=== PATIENT | female | born 1985 | race Caucasian/White ===

== ENCOUNTER 2023-05-15 09:16 | Emergency (ER) | payer MEDICARE, MEDICAID, SELFPAY ==
--- NOTE | ~2023-05-15 | XR_ITS ---
EXAMINATION: XR CHEST CLINICAL INFORMATION: Cough and chest pain COMPARISON: Chest radiograph from 07/30/2013 TECHNIQUE: 2 views of the chest were obtained. FINDINGS: No focal consolidation. No pneumothorax. Trachea is midline. Cardiac mediastinal silhouette is not enlarged. No large pleural effusion. Osseous structures are intact. Soft tissues are unremarkable. XR/XR chest 2V IMPRESSION: No acute cardiopulmonary process.
[2023-05-15 09:25] VITALS: BP 167/97; PULSE 85; RESP 17; TEMP 37.3; O2SAT 97; BMI 27.5
[2023-05-15 09:50] LABS: MANUAL DIFF FLAG NO
[2023-05-15 09:57] LABS: Basophils Percent Auto 0.7 % (0-2); Eosinophils Percent Auto 0.5 % (0-4); Hematocrit 34.7 % (37.0-47.0); Hemoglobin 10.4 g/dl (12.0-16.0); Imm Gran Abs Auto 0.01 X10*3/uL (0.00-0.03); Imm Gran Pct Auto 0.2 % (0.0-0.4); Lymphocytes Absolute Auto 1.3 X10*3/uL (1.2-4.9); Lymphocytes Percent Auto 30.7 % (20-40); Mean Corpuscular Hemoglobin 20.9 pg (27.0-33.0); Mean Corpuscular Volume 69.7 fL (80.0-98.0); Mean Platelet Volume 9.7 fL (9.4-12.3); Monocytes Absolute Auto 0.5 X10*3/uL (0.1-1.2); Monocytes Percent Auto 12.7 % (2-11); Neutrophils Absolute Auto 2.3 x10*3/uL (2.0-8.3); Neutrophils Percent Auto 55.2 % (45-73); Platelet Count 159 X10*3/uL (160-400); Red Blood Count 4.98 X10*6/uL (4.20-5.50); Red Cell Distribution Width 17.9 % (11.0-16.0); White Blood Count 4.2 X10*3/uL (4.8-10.8)
[2023-05-15 10:07] LABS: Anion Gap 12 (12-20); Blood Urea Nitrogen 7 mg/dL (9-16); Calcium 8.7 mg/dL (8.4-10.2); Carbon Dioxide 27 mmol/L (22-29); Chloride 102 mmol/L (96-108); Creatinine Clr Calc Pharmacy 99.2; Estimated Glomerular Filt Rate > 60; Glucose Random 80 mg/dL (60-115); Potassium 3.7 mmol/L (3.3-5.1); Sodium 137 mmol/L (135-145)
--- NOTE | 2023-05-15 10:08 | ED.URI ---
HPI - URI/Sore Throat General Chief Complaint: Upper Respiratory Symptoms Stated Complaint: Difficulty breathing Time Seen by Provider: 05/15/23 09:44 Source: patient Mode of arrival: ambulatory Limitations: no limitations History of Present Illness HPI Narrative: patient is a 38-year-old female who presents to the emergency department for evaluation of flu-like symptoms. She reports symptom onset 3 days ago with significant worsening last night. She has been experiencing an intermittent diffuse headache, dry nonproductive cough, body aches, nausea, vomiting, poor p.o. intolerance, nasal congestion. She denies fevers, chills, neck pain, neck stiffness, abdominal pain, constipation, diarrhea, genitourinary symptoms, possibility of (history of tubal ligation). She denies known recent sick contacts, Related Data Previous Rx's Medication Instructions Recorded albuterol sulfate 90 mcg/actuation 2 puff inhalation Q4-6H PRN 05/15/23 aerosol inhaler shortness of breath or wheezing #6.7 grams ondansetron 4 mg disintegrating 4 mg PO Q8H PRN nausea and 05/15/23 tablet vomiting #14 tabs Allergies Allergy/AdvReac Type Severity Reaction Status Date / Time No Known Allergies Allergy Unverified 03/20/20 15:58 Review of Systems Review of Systems: Yes all other systems are reviewed and are negative [facility] Past Medical History Attestation statement: The following information was validated with the patient. Source: old records reviewed Social History Social History Advance Directives: No Advance Directives Information Provided: No Physical Exam Vital Signs: Vital Signs: Last Vital Signs Temp 100.3 F 05/15/23 11:35 Pulse 82 05/15/23 11:35 Resp 16 05/15/23 11:35 BP 167/94 H 05/15/23 11:35 Pulse Ox 97 05/15/23 11:35 O2 Del Method Room Air 05/15/23 11:35 BMI result Body Mass Index 27.5 Appearance: Alert.?Oriented to person, place and time. No acute distress.?Normal affect. Eyes: Pupils equal, round and reactive to light.? EOMI. No nystagmus. ENT: Pharynx normal, no exudates or tonsillar hypertrophy..?? Right TM normal. Left TM erythematous and bulging with opacity. no mastoid tenderness Neck: Normal inspection.? Neck supple.?? no cervical lymphadenopathy CVS: Heart sounds normal. Normal heart rate and rhythm.? Pulses normal.?? Respiratory: No respiratory distress.? Lung sounds clear to auscultation bilaterally?? Abdomen: Soft and non-tender. Normoactive bowel sounds. ? no CVA tenderness Skin: Skin warm and dry.? Normal skin color.? Extremities: No lower extremity edema.? Neuro: Moves all extremities spontaneously. Sensation intact bilaterally. Ambulates with normal steady gait. Medications Administered Discontinued Medications Generic Name Dose Route Start Last Admin Trade Name Gray PRN Reason Stop Dose Admin Acetaminophen 975 mg 05/15/23 11:37 05/15/23 11:44 Acetaminophen 325 Mg Tablet PO 05/15/23 11:38 975 mg ONCE ONE Administration Guaifenesin/Codeine Phosphate 10 ml 05/15/23 10:19 05/15/23 10:49 Guaifen/Codeine Sf 200/20/10ml 10 Ml Liquid PO 05/15/23 10:20 10 ml ONCE ONE Administration Sodium Chloride 1,000 mls @ 999 mls/hr 05/15/23 10:30 05/15/23 11:45 Ns IV 05/15/23 11:30 Infused .Q1H1M GEORGE Infusion Ondansetron HCl 4 mg 05/15/23 10:19 05/15/23 10:49 Ondansetron Hcl 4 Mg/2 Ml Vial IVPUSH 05/15/23 10:20 4 mg ONCE ONE Administration Medical Decision Making Medical Decision Making MDM Narrative: Patient is a 38-year-old female with past medical history of rheumatoid arthritis on biologic Orencia, presenting for evaluation of Viral symptoms. at the time of my examination she she appears ill and fatigued, notable congestion and persistent nonproductive cough. no respiratory distress, no tachypnea or hypoxia, no increased work of breathing, lung sounds are diminished bilaterally, though she does have low inspiratory effort as deep inspirations results in coughing episodes. Experiencing nausea and vomiting with poor p.o. tolerance, however abdominal examination is benign, not consistent with acute abdomen. COVID-19 testing negative. Influenza testing negative. RSV testing positive. At this time history and physical exam not consistent with ACS/PE. Chest x-ray reveals no acute cardiopulmonary process, no evidence of pneumonia at this time.. provided with feeling L IV fluid, Zofran IV, guaifenesin with codeine with good relief At the time of discharge she is Speaking clear full sentences, ambulatory with steady gait. Discussed conservative treatment including rest, hydration, Tylenol/ibuprofen as needed for fever and body aches, saline nasal spray, humidifier, [id number] cold medication. Advised to follow-up with primary care provider as needed, discussed reasons to return back to the emergency department. All questions were answered. Patient discharged home in stable condition. Differential Diagnosis Differential Diagnoses: The differential diagnosis associated with the presentation includes ( as noted above) Lab Data MDM Lab Attestation statement: I reviewed the patient's lab results. CBC is without leukocytosis, microcytic anemia not meeting transfusion criteria. Overall unremarkable BMP. 05/15/23 09:44 05/15/23 09:44 Labs: Lab Results 05/15/23 Range/Units 09:44 WBC 4.2 L (4.8-10.8) X10*3/uL RBC 4.98 (4.20-5.50) X10*6/uL Hgb 10.4 L (12.0-16.0) g/dl Hct 34.7 L (37.0-47.0) % MCV 69.7 L (80.0-98.0) fL MCH 20.9 L (27.0-33.0) pg MCHC 30.0 L (31.0-35.0) g/dl RDW 17.9 H (11.0-16.0) % Plt Count 159 L (160-400) X10*3/uL MPV 9.7 (9.4-12.3) fL Immature Gran % (Auto) 0.2 (0.0-0.4) % Neut % (Auto) 55.2 (45-73) % Lymph % (Auto) 30.7 (20-40) % Wise % (Auto) 12.7 H (2-11) % Eos % (Auto) 0.5 (0-4) % Baso % (Auto) 0.7 (0-2) % Lymph # (Auto) 1.3 (1.2-4.9) X10*3/uL Wise # (Auto) 0.5 (0.1-1.2) X10*3/uL Eos # (Auto) 0.0 (0.0-0.4) X10*3/uL Baso # (Auto) 0.0 (0.0-0.2) X10*3/uL Abs Immat Gran (auto) 0.01 (0.00-0.03) X10*3/uL Absolute Neuts (auto) 2.3 (2.0-8.3) x10*3/uL Absolute Nucleated RBC 0.000 (0.0-0.012) X10*3/uL Nucleated RBC % (auto) 0.0 (0.0-0.2) /100WBC Sodium 137 (135-145) mmol/L Potassium 3.7 (3.3-5.1) mmol/L Chloride 102 (96-108) mmol/L Carbon Dioxide 27 (22-29) mmol/L Anion Gap 12 (12-20) BUN 7 L (9-16) mg/dL Creatinine 0.73 (0.5-1.4) mg/dL Estim Creat Clear Calc 99.2 Estimated GFR > 60 Random Glucose 80 (60-115) mg/dL Calcium 8.7 (8.4-10.2) mg/dL Total Bilirubin 0.3 (0.0-1.0) mg/dL Direct Bilirubin 0.2 (0.0-0.5) mg/dL AST 14 (5-31) U/L ALT 5 (0-31) U/L Alkaline Phosphatase 60 (39-117) U/L Total Protein 7.5 (6.5-8.0) g/dL Albumin 3.8 (3.5-5.0) g/dL Lipase 25 (8-78) U/L Influenza Type A (PCR) NEGATIVE (Negative) Influenza Type B (PCR) NEGATIVE (Negative) RSV RNA Qual (PCR) POSITIVE A (Negative) SARS-CoV-2 RNA (RT-PCR) NEGATIVE (Negative) Independent Interpretation I performed an independent interpretation of an: Plain X-Ray ( I personally interpreted chest x-ray and agree with radiologist impression) Radiology Impression Discussion of test interpretation with radiology: I have reviewed the radiologist's reading. Independent Historian Clinical information obtained from an independent historian. History obtained from or confirmed by: Parent ( present at bedside who confirms history) Prescription Management I considered prescription management with: Other ( cough suppressant) Discharge Plan Discharge Clinical Impression: Respiratory syncytial virus (RSV) Patient Disposition: Home, Self-Care Instructions: Upper Respiratory Infection (ED) Prescriptions: New albuterol sulfate 90 mcg/actuation HFA aerosol inhaler 2 puff inhalation Q4-6H PRN (Reason: shortness of breath or wheezing) Qty: 6.7 0RF ondansetron 4 mg tablet,disintegrating 4 mg PO Q8H PRN (Reason: nausea and vomiting) Qty: 14 0RF Referrals: Vinh Lambert III, MD [Primary Care Provider] - Stand Alone Forms: Work/School Release Interventions: ED Discharge Assessment Last Done: 05/15/23 12:24 Discharge Date/Time: 05/15/23 12:25
[2023-05-15 10:48] LABS: Alanine Aminotransferase 5 U/L (0-31); Albumin Level 3.8 g/dL (3.5-5.0); Alkaline Phosphatase 60 U/L (39-117); Aspartate Amino Transferase 14 U/L (5-31); Bilirubin Direct 0.2 mg/dL (0.0-0.5); Bilirubin Total 0.3 mg/dL (0.0-1.0); Lipase 25 U/L (8-78); Total Protein 7.5 g/dL (6.5-8.0)
[2023-05-15] MEDS: guaiFEN/Codeine SF 200/20/10ML 10 ML LIQUID PO (10:49)
[2023-05-15] MEDS: ondansetron HCL 4 MG/2 ML VIAL IVPUSH (10:49)
[2023-05-15 10:50] LABS: Influenza A PCR NEGATIVE (Negative); Influenza B PCR NEGATIVE (Negative); Resp Syncy Virus RNA Qual PCR POSITIVE (Negative); SARS COV2 PCR INHOUSE NEGATIVE (Negative)
[2023-05-15] MEDS: 0.9 % Sodium Chloride 1,000 ML 999 ML IV (10:52)
[2023-05-15 11:35] VITALS: BP 167/94; PULSE 82; RESP 16; TEMP 37.9; O2SAT 97
[2023-05-15] MEDS: Acetaminophen 325 MG TABLET 975 MG PO (11:44)
== END 2023-05-15 12:25 | disposition home or self-care (01) ==
PROVIDERS: Nurse Practitioner Family; Emergency Provider Emergency Medicine Emergency Medical Services; PCP Internal Medicine
DX: R05.9 Cough, unspecified (principal); B97.4 Respiratory syncytial virus as the cause of diseases classified elsewhere; Z20.822 Contact with and (suspected) exposure to COVID-19; Z20.828 Contact with and (suspected) exposure to other viral communicable diseases; R50.9 Fever, unspecified; R11.2 Nausea with vomiting, unspecified
CPT/HCPCS: 0241U; 71046; 80048; 80076; 83690; 85025; 96361; 96374; 99284; J2405

== ENCOUNTER 2024-02-01 04:27 | Emergency (ER) | payer MEDICARE, SELFPAY ==
[2024-02-01 04:33] VITALS: BP 139/80; PULSE 67; RESP 18; TEMP 36.7; O2SAT 99; BMI 26.6
[2024-02-01 04:41] VITALS: BP 151/80; PULSE 68; RESP 18; TEMP 36.8; O2SAT 98
[2024-02-01 05:02] LABS: IDNOW Serial# 6674DD1D; Strep A Nucleic Acid Negative (Negative)
[2024-02-01 05:27] LABS: Influenza A PCR NEGATIVE (Negative); Influenza B PCR NEGATIVE (Negative); Resp Syncy Virus RNA Qual PCR NEGATIVE (Negative); SARS COV2 PCR INHOUSE NEGATIVE (Negative)
--- NOTE | 2024-02-01 05:55 | ED.URI ---
HPI - URI/Sore Throat General Chief Complaint: Upper Respiratory Symptoms Stated Complaint: upper resp. Time Seen by Provider: 02/01/24 05:34 History of Present Illness HPI Narrative: Patient is a 38-year-old female presents today with coughing congestion upper respiratory symptoms also having some sore throat for the last 24 hours also having some earache. Patient vaccinated for COVID. No fever no chills. Able to swallow without any difficulty. No changes in speech. No difficulty breathing. Related Data Previous Rx's ?Medication ?Instructions ?Recorded albuterol sulfate 90 mcg/actuation 2 puff inhalation Q4-6H PRN 05/15/23 aerosol inhaler shortness of breath or wheezing #6.7 grams ondansetron 4 mg disintegrating 4 mg PO Q8H PRN nausea and 05/15/23 tablet vomiting #14 tabs azithromycin 250 mg tablet See Rx Instructions PO .COMPLEX 02/01/24 upper resp infection #6 tabs ibuprofen 400 mg tablet 400 mg PO Q6H PRN pain #20 tabs 02/01/24 Allergies Allergy/AdvReac Type Severity Reaction Status Date / Time No Known Allergies Allergy Verified 02/01/24 04:34 Review of Systems Review of Systems: Positive coughing positive sore throat positive earache Yes all other systems are reviewed and are negative [facility] Past Medical History Attestation statement: The following information was validated with the patient. Social History Social History Advance Directives: No Advance Directives Information Provided: Yes Physical Exam Vital Signs: Vital Signs: Last Vital Signs Temp 98.3 F 02/01/24 04:41 Pulse 68 02/01/24 04:41 Resp 18 02/01/24 04:41 BP 151/80 H 02/01/24 04:41 Pulse Ox 98 02/01/24 04:41 O2 Del Method Room Air 02/01/24 04:33 BMI result Body Mass Index 26.6 Appearance: Alert. Oriented X3. No acute distress. Eyes: Pupils equal, round and reactive to light. ENT: Pharynx normal. TMs are intact bilaterally good light reflexes bilaterally Neck: Normal inspection. Neck supple. No lymph nodes noted. No crepitus CVS: Normal heart rate and rhythm. Pulses normal. Normal S1 and S2 Respiratory: No respiratory distress. Breath sounds normal. No Wheezing. No rales Abdomen: Soft and nontender. No rigidity. No distention. good BS x4 Skin: Skin warm and dry. Normal skin color. Normal skin turgor. Extremities: No lower extremity edema. Neurovascular intact to all extremities. No Lacerations. No Rash Neuro: Oriented X 3. No motor deficit. No sensory deficit. Moving all extermities. No slurred speech Medical Decision Making Medical Decision Making [facility] Narrative: Patient well-appearing posterior pharynx is normal patient's flu COVID RSV were all negative. Her rapid strep was also negative. Lungs were clear. Positive upper respiratory symptoms. Will discharge patient home O2 sats 98% on room air Differential Diagnosis Differential Diagnoses: The differential diagnosis associated with the presentation includes Pneumonia, COVID, RSV, otitis Admission/Observation Consideration of admission/observation: Escalation of care including admission/observation considered Lab Data [facility] Lab Attestation statement: I reviewed the patient's lab results. Labs: Lab Results 02/01/24 Range/Units 04:45 Influenza Type A (PCR) NEGATIVE (Negative) Influenza Type B (PCR) NEGATIVE (Negative) RSV RNA Qual (PCR) NEGATIVE (Negative) SARS-CoV-2 RNA (RT-PCR) NEGATIVE (Negative) S. pyogenes GrpA MARIANA Negative (Negative) Prescription Management I considered prescription management with: Antiviral (Not needed) Discharge Plan Discharge Clinical Impression: Upper respiratory infection Patient Disposition: Home, Self-Care Instructions: Acute Bronchitis (ED) Prescriptions: New azithromycin 250 mg tablet See Rx Instructions .ROUTE .COMPLEX Qty: 6 0RF Rx Instructions: take 500 mg today (day 1), then 250 mg for 4 days (days 2-5) ibuprofen 400 mg tablet 400 mg PO Q6H PRN (Reason: pain) Qty: 20 0RF No Action albuterol sulfate 90 mcg/actuation HFA aerosol inhaler 2 puff inhalation Q4-6H PRN (Reason: shortness of breath or wheezing) Qty: 6.7 0RF ondansetron 4 mg tablet,disintegrating 4 mg PO Q8H PRN (Reason: nausea and vomiting) Qty: 14 0RF Referrals: Vinh Lambert III, MD [Primary Care Provider] - 02/03/24 Print Language: Greenlandic
[2024-02-01 06:20] VITALS: BP 136/78; PULSE 76; RESP 20; TEMP 36.4; O2SAT 99
== END 2024-02-01 06:16 | disposition home or self-care (01) ==
PROVIDERS: Emergency Provider Emergency Medicine Emergency Medical Services; PCP Internal Medicine
DX: J06.9 Acute upper respiratory infection, unspecified (principal); J02.9 Acute pharyngitis, unspecified; Z03.818 Encounter for observation for suspected exposure to other biological agents ruled out; R05.9 Cough, unspecified; Z79.899 Other long term (current) drug therapy
CPT/HCPCS: 0241U; 87651; 99282; 99283